=== PATIENT | female | born 1930 | race Caucasian/White ===

== ENCOUNTER → 2019-01-09 | Outpatient (CLI) | payer MEDICARE ==
--- NOTE | 2019-01-09 14:32 | Diagnostic Imaging Report ---
INDICATION: Recent fall. TECHNIQUE: Routine [id number] axial images were obtained from the skull base to the vertex. Auto Exposure Controls were utilized during the CT exam to meet ALARA standards for radiation dose reduction COMPARISON: None. FINDINGS: The ventricles and cortical sulci are diffusely prominent, compatible with age-related volume loss. There are confluent areas of abnormal, low attenuation in the periventricular white matter. This is consistent with small vessel ischemic changes; age-indeterminate. There is no prior study available for comparison. There is no midline shift or mass-effect. No acute intra-axial hemorrhage is seen. There are no abnormal areas of increased or decreased density to suggest acute hemorrhage or edema. No extra-axial masses or collections are present. The bony calvarium is intact. The visualized paranasal sinuses are unremarkable. The mastoid air cells are clear. IMPRESSION: 1. No acute intracranial abnormality. No CT evidence of mass, acute infarct or intracranial hemorrhage. 2. 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 Dictated by: Dictated on workstation # [id number]
== END ==
LOC: RAD FS 14:13
PROVIDERS: ATTEND Family Medicine
DX: I67.82 Cerebral ischemia (principal); R90.82 White matter disease, unspecified; W19.XXXA Unspecified fall, initial encounter
CPT/HCPCS: 70450